=== PATIENT | male | born 1990 | race Caucasian/White ===

== ENCOUNTER 2019-02-02 12:45 | Emergency (ER) | payer BC, OTHER ==
[2019-02-02 13:20] VITALS: BP 141/94
--- NOTE | 2019-02-02 14:24 | UC ---
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 Denies numbness, tingling. No trauma. no swelling, bruising noted. no prior surgeries, injuries. - History of Current Complaint Chief Complaint: UCUpperExtremity Stated Complaint: WRIST INJURY Time Seen by Provider: 02/02/19 14:11 Hx Obtained From: Patient ?: No Onset/Duration: Sudden Onset, Lasting Weeks Severity Initially: Moderate Severity Currently: Moderate Pain Intensity: 2 Pain Scale Used: 0-10 Numeric Location Of Pain: Is Discrete @ - base of right thumb Aggravating Factor(s): Lifting, Flexion, Extension Alleviating Factor(s): OTC Meds, Rest Associated Signs And Symptoms: Negative: Swelling, Redness, Bruising, Weakness, Numbness/Tingling - Allergies/Home Medications Allergies/Adverse Reactions: Allergies Allergy/AdvReac Type Severity Reaction Status Date / Time No Known Allergies Allergy Verified 02/02/19 13:20 PMH/Surg Hx/FS Hx/Imm Hx Previously Healthy: Yes - Surgical History Surgical History: None - Family History Known Family History: Positive: Non-Contributory - Social History 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 Negative: Edema Neurological: Negative: Weakness, Paresthesia Is Patient Immunocompromised?: No Physical Exam Triage Information Reviewed: Yes Appearance: Well-Appearing, No Pain Distress, Well-Nourished Vital Signs: Initial Vital Signs Temp 99.5 F 02/02/19 13:16 Pulse 88 02/02/19 13:16 Resp 18 02/02/19 13:16 BP 141/94 02/02/19 13:16 Pulse Ox 97 02/02/19 13:16 Vital Signs Reviewed: Yes Eyes: Positive: Conjunctiva Clear ENT: Positive: Hearing grossly normal Musculoskeletal: Positive: Strength Intact, ROM Intact - right wrist with full PROM, AROM. mild tenderness to palpation over CMC joint, unable to reproducce symptoms/ pain with increased, No Edema. Negative: Edema @ Neurological: Positive: Alert, Muscle Tone Normal Skin: Positive: Other - no open wounds or sores. no ecchymosis, no edema.. Negative: Rashes, Breakdown Upper Extremity Course/Dx - Course Course Of Treatment: Tendonitis, over use injury - Naproxen/ Alleve- 500mg every 12 hours for 3-5 days - Elevate, ice as much as possible - Obtain splint that has thumb immoblized, such as thumb spica splint. Can get at [facility]/ drug [facility]. Wear at all times. - FOllow up with ortho within 3-5 days if no improvement Machine Tailer: Kadeem Decker Daniel, ([id number]) Veterinary Medicine Teacher: SEN ( SEN) Report Date: 02/02/2019 14:34:00 Report Status: Final ====== Start of Report Content Patient Name: ROXY CHRISTIAN Ordering Physician: Edwina BARROW Acct.#: [id number] : 1990 Age: 28 Sex: M Location: [facility] Exam Date: 1419 ADM Status: REG ER Order Information: WRIST RIGHT 3+ VWS Accession Number: [id number] CPT: 11615 HISTORY: scaphoid pain. . COMPARISONS: None relevant available at the time of dictation. VIEWS: 4, Frontal, lateral, oblique , and scaphoid deviation views of the right wrist FINDINGS: BONE DENSITY: Normal. BONES: There is no displaced fracture. JOINTS: There is no arthropathy. ALIGNMENT: There is no dislocation. SOFT TISSUES: Unremarkable. OTHER FINDINGS: None. IMPRESSION: NO ACUTE OSSEOUS INJURY. IF SYMPTOMS PERSIST, RECOMMEND REPEAT IMAGING. < Electronically signed by Kadeem Decker MD in OV> 02/02/19 1430 Dictated By : Kadeem Decker MD Dictated Date/Time: 02/02/191428 Transcribed Date/Time : 02/02/191428 Copy to: CC:Ivonne Strickland MD; Edwina BARROW; No Primary Care Phys,NOPCP Imaging - [facility] Imaging - [facility] Care Imaging - [facility] [address] [place] [address] [address] [address] ph ([phone] ph ) ph ([phone]) End of Report Content - Differential Dx/Diagnosis Provider Diagnosis: Tendonitis Discharge ED - Sign-Out/Discharge Documenting (check all that apply): Patient Departure All imaging exams completed and their final reports reviewed: Yes - Discharge Plan Condition: Good Disposition: HOME Prescriptions: methylPREDNISolone [Medrol] 4 mg PO .SEE TAP #1 tab.ds.pk Patient Education Materials: Tendinitis (ED) Referrals: [facility] [Outside] No Primary Care Phys,NOPCP [Primary Care Provider] - Makeda Hernandez MD [Medical Doctor] - Additional Instructions: Tendonitis, over use injury - Naproxen/ Alleve- 500mg every 12 hours for 3-5 days - Elevate, ice as much as possible - Obtain splint that has thumb immoblized, such as thumb spica splint. Can get at [facility]/ drug store. Wear at all times. - FOllow up with ortho within 3-5 days if no improvement Machine Tailer: Kadeem Decker Daniel, ([id number]) Veterinary Medicine Teacher: SEN ( SEN) Report Date: 02/02/2019 14:34:00 Report Status: Final ====== Start of Report Content Patient Name: ROXY CHRISTIAN Ordering Physician: Edwina BARROW Acct.#: [id number] : 1990 Age: 28 Sex: M Location: [facility] Exam Date: 1418 ADM Status: REG ER Order Information: WRIST RIGHT 3+ VWS Accession Number: [id number] CPT: 00740 HISTORY: scaphoid pain. . COMPARISONS: None relevant available at the time of dictation. VIEWS: 4, Frontal, lateral, oblique , and scaphoid deviation views of the right wrist FINDINGS: BONE DENSITY: Normal. BONES: There is no displaced fracture. JOINTS: There is no arthropathy. ALIGNMENT: There is no dislocation. SOFT TISSUES: Unremarkable. OTHER FINDINGS: None. IMPRESSION: NO ACUTE OSSEOUS INJURY. IF SYMPTOMS PERSIST, RECOMMEND REPEAT IMAGING. < Electronically signed by Kadeem Decker MD in OV> 02/02/19 1430 Dictated By : Kademe Decker MD Dictated Date/Time: 02/02/191428 Transcribed Date/Time : 02/02/191428 Copy to: CC:Ivonne Strickland MD; Edwina BARROW; No Primary Care Phys,NOPCP Imaging - [facility] Imaging - [facility] Imaging - [facility] [address] [address] ph ([phone]) ph ) ph ([phone]) End of Report Content - Billing Disposition and Condition Condition: GOOD Disposition: Home
== END 2019-02-02 15:00 | disposition home or self-care (01) ==
LOC: UCEAST 12:45
DX: M77.9 Enthesopathy, unspecified (principal)
CPT/HCPCS: 99201; G0463